=== PATIENT | male | born 1955 | race Caucasian/White ===

== ENCOUNTER 2018-12-03 08:17 | Day surgery (SDC) | payer BC ==
[~2018-12-03 08:17] MED LIST: Lactated Ringers 1,000 ML IV SCH; Lidocaine 1% 6 ML ONE; Lidocaine 1%/Sod Bicarbonate in NS 8.4% 1 ML Syringe IDERM PRN; Propofol 200 MG/20 ML SDV ONE; Sodium Chloride 0.9% 10 ML Syringe FLUSH PRN; fentaNYL 100 MCG/2 ML SDV ONE
[2018-12-03] MEDS ORDERED: Albuterol 0.083% 2.5 MG/3 ML Neb Soln NEB ONE (08:46)
--- NOTE | 2018-12-03 08:50 | PCM.PREANE ---
Preanesthetic Assessment - Procedure Proposed Procedure: colonoscopy - Anesthesia/Transfusion/Family Hx Anesthesia History: No Prior Anesthesia Family History of Anesthesia Reaction: No Transfusion History: No Prior Transfusion(s) - Review of Systems General: No Symptoms Pulmonary: Shortness of Breath (occasionally- feels more today- states needs to quit smoking) Cardiovascular: No Symptoms Gastrointestinal: No Symptoms Neurological: No Symptoms Other: Reports: Diabetes - Physical Assessment NPO Status Date: 12/03/18 NPO Status Time: 21:00 Vital Signs: 186/79 83 96% 17 97.9 Height: 6 ft 4 in Weight: 120.2 kg ASA Class: 2 Mental Status: Alert & Oriented x3 Airway Class: Mallampati = 2 Dentition: Reports: Normal Dentition Thyro-Mental Finger Breadths: 3 Mouth Opening Finger Breadths: 3 ROM/Head Extension: Full Lungs: Clear to Auscultation, Normal Respiratory Effort, Decreased Breath Sounds Cardiovascular: Regular Rate, Regular Rhythm - Allergies Allergies/Adverse Reactions: Allergies Allergy/AdvReac Type Severity Reaction Status Date / Time No Known Allergies Allergy Verified 12/22/13 13:38 - Blood Blood Available: No - Acknowledgements Anesthesia Type Planned: MAC Pt an Appropriate Candidate for the Planned Anesthesia: Yes Alternatives and Risks of Anesthesia Discussed w Pt/Guardian: Yes Pt/Guardian Understands and Agrees with Anesthesia Plan: Yes PreAnesthesia Questionnaire HEENT History: Reports: Allergic Rhinitis, Impaired Vision, Other (See Below) Other HEENT History: WEARS GLASSES Cardiovascular History: Reports: High Cholesterol, Hypertension, Other (See Below) Other Cardiovascular History: ABNORMAL HEART RATE Respiratory History: Reports: Other (See Below) Other Respiratory History: LOUD SNORING, 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 NO COMPLICATIONS/CONCERNS SINCE. 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 Musculoskeletal History: Reports: Other (See Below) Other Musculoskeletal History: Plantar fasciitis Neurological History: Reports: None Psychiatric History: Reports: None Endocrine/Metabolic History: Reports: Diabetes, Type II, Other (See Below) Other Endocrine/Metabolic History: overweight Hematologic History: Reports: None Immunologic History: Reports: None Oncologic (Cancer) History: Reports: None - Past Surgical History Head Surgeries/Procedures: Reports: None Respiratory Surgical History: Reports: None GI Surgical History: Reports: None Female Surgical History: Reports: None Male Surgical History: Reports: None Endocrine Surgical History: Reports: None Neurological Surgical History: Reports: None Musculoskeletal Surgical History: Reports: None Oncologic Surgical History: Reports: None Dermatological Surgical History: Reports: Other (See Below) - SUBSTANCE USE Smoking Status *Q: Current Every Day Smoker Tobacco Use Within Last Twelve Months: Cigarettes Second Hand Smoke Exposure: Yes Days Per Week of Alcohol Use: 7 Number of Drinks Per Day: 1 Total Drinks Per Week: 7 Recreational Drug Use History: No - HOME MEDS Home Medications: Home Meds Valsartan/Hydrochlorothiazide [Valsartan-Hctz 160-12.5 mg Tab] 1 tab PO DAILY [History] atorvaSTATin Calcium [Atorvastatin Calcium] 20 mg PO DAILY 12/02/18 [History] metFORMIN [Glucophage] 500 mg PO BID 12/02/18 [History] - CURRENT (IN HOUSE) MEDS Current Meds: Current Medications Lactated Ringer's (Ringers, Lactated) 1,000 mls @ 125 mls/hr IV ASDIRECTED RIVAS Stop: 12/03/18 23:00 Lidocaine/Sodium Bicarbonate (Buffered Lidocaine 1% In Ns 8.4%) 0.25 ml IDERM ONETIME PRN PRN Reason: Prior to IV Start Stop: 12/03/18 18:00 Sodium Chloride (Saline Flush) 10 ml FLUSH ASDIRECTED PRN PRN Reason: Keep Vein Open Stop: 12/03/18 18:00 Discontinued Medications Fentanyl (Sublimaze) Confirm Administered Dose 100 mcg .ROUTE .STK-MED ONE Stop: 12/03/18 07:23 Lidocaine HCl (Xylocaine-Mpf 1%) Confirm Administered Dose 6 mls @ as directed .ROUTE .STK-MED ONE Stop: 12/03/18 07:22 Propofol (Diprivan 20 Ml) Confirm Administered Dose 200 mg .ROUTE .STK-MED ONE Stop: 12/03/18 07:22
[2018-12-03] MEDS ORDERED: Lactated Ringers 1,000 ML ONE (10:20)
[2018-12-03] MEDS ORDERED: Propofol 200 MG/20 ML SDV ONE (10:24)
--- NOTE | 2018-12-03 10:54 | PCM48HPAN ---
Post Anesthesia Note - EVALUATION WITHIN 48HRS OF ANESTHETIC Vital Signs in Normal Range: Yes Patient Participated in Evaluation: Yes Respiratory Function Stable: Yes Airway Patent: Yes Cardiovascular Function Stable: Yes Hydration Status Stable: Yes Pain Control Satisfactory: Yes Nausea and Vomiting Control Satisfactory: Yes Mental Status Recovered: Yes Vital Signs: Last Vital Signs Temp 97.9 12/03/18 10:50 Pulse 68 12/03/18 10:50 Resp 12 12/03/18 10:50 BP 140/85 12/03/18 10:50 Pulse Ox 94 12/03/18 10:50
--- NOTE | 2018-12-03 13:40 | OR ---
DATE OF OPERATION: 12/03/2018 SURGEON: Agustin Egan MD PREOPERATIVE DIAGNOSIS: Colorectal cancer screening. POSTOPERATIVE DIAGNOSIS: 1. Colorectal cancer screening. 2. Diverticulosis. 3. Colon polyps. OPERATION PERFORMED: Screening colonoscopy and polypectomy x2. ANESTHESIA: MAC. FINDINGS: He had nathan-diverticulosis. I also noted 2 polyps, 1 in the rectum and 1 in the transverse colon. Both of these were removed in their entirety with a biopsy forceps, both subcentimeter, and they appeared to be hyperplastic in nature. The bowel prep was adequate. DISPOSITION: Stable at the end of the procedure. ESTIMATED BLOOD LOSS: Minimal. PATHOLOGY: 1. Rectal polyp. 2. Transverse colon polyp. INDICATION: The patient is a 63-year-old male who has never had a colonoscopy. He was referred for colorectal cancer screening. He was fully informed of the major risks, benefits, and alternatives. The risks include, but are not limited to perforation of the colon, bleeding, the risks of anesthesia, the possibility of further surgery, and many others. He gave informed consent of what was done. DESCRIPTION OF PROCEDURE: The patient was brought to the gastro suite and placed in the left lateral decubitus position. He was given monitored anesthesia. A digital rectal exam was performed. This was unremarkable. I introduced the colonoscope in the rectum with copious lubrication. I advanced the scope with gentle forward pressure keeping the lumen in view at all times. I reached the cecum and documented the cecum photographically for the chart. I slowly investigated the mucosa of the colon from the cecum back to the anus in an exam lasting 15 minutes. A thorough careful examination demonstrated nathan-diverticulosis. Two polyps as noted previously. The polyps were removed with several bites of the biopsy forceps in their entirety. As I slowly investigated the mucosa, I evacuated the air from the colon. At the end of the procedure, the scope was withdrawn. He had no complications and tolerated the procedure well. PLAN: He will need another colonoscopy in 5 years based on my findings today. However, if his pathology returns hyperplastic, 10-year followup will be adequate. MMODAL /[id number]
--- NOTE | 2018-12-06 10:05 | HP ---
DATE OF ADMISSION: 12/03/2018 ADMITTING DIAGNOSIS: Colorectal cancer screening. HISTORY OF PRESENT ILLNESS: The patient is a 63-year-old male who presents for colorectal cancer screening. He has never had a colonoscopy. He is asymptomatic. He denies bloody bowel movements, changes in his bowel movements, straining on the toilet, tenesmus, change in the size of his stool, abdominal pain, or abdominal bloating. He has no family history. PAST MEDICAL HISTORY: Hypertension, type 2 diabetes, hypercholesterolemia, and gastroesophageal reflux disease. PAST SURGICAL HISTORY: He has had a thoracostomy tube for a left pneumothorax at the age of 20. No other surgeries. CURRENT MEDICATIONS: 1. Atorvastatin 20 mg p.o. daily. 2. Metformin 500 mg twice daily. 3. Valsartan/hydrochlorothiazide 160/25, 1 tab daily. FAMILY HISTORY: Significant for asthma in his mother and type 2 diabetes. His father had type 2 diabetes as well. SOCIAL HISTORY: He drinks 8 to 14 drinks per week. He denies illicit drugs. He is a 1-pack-per- day smoker for 10 years and quit just a month ago. He still smokes cigars, 4 to 5 cigars per day. REVIEW OF SYSTEMS: He has an excellent exercise tolerance. He has no chest pain or shortness of breath. He can ambulate as long as he would like without stopping to catch his breath. He can climb 2 flights of stairs without stopping to catch his breath. A 10-system review is, otherwise, negative. PHYSICAL EXAMINATION: GENERAL: He is alert. He is in no obvious distress. He looks quite comfortable. VITAL SIGNS: Vitals are within normal limits. HEAD AND NECK: Normocephalic and atraumatic. His neck is supple with full range of motion. No carotid bruits. HEART: He has a regular rate and rhythm. No clicks, murmurs, or rubs. LUNGS: He has some bilateral wheeze. No crackles. No rhonchi. ABDOMEN: Soft, nontender, and nondistended. No palpable hernias. No palpable masses. NEUROLOGIC: His cranial nerves are grossly intact and nonfocal. Strength, sensation, and movement are preserved in all 4 extremities. PSYCHIATRIC: He has appropriate affect and demeanor. INTEGUMENT: No rashes. No lesions. No petechiae. No jaundice. ASSESSMENT: Colorectal cancer screening. PLAN: I have recommended today a screening colonoscopy per the standard of care. He was fully informed of the major risks, benefits, and alternatives of the procedure. These risks include, but are not limited to perforation of the colon, bleeding, the risks of anesthesia, the possibility of further surgery, and many others. He gave informed consent. KAYLIN /[id number]
== END 2018-12-03 11:14 | disposition home or self-care (01) ==
LOC: JD.SDS 08:17
PROVIDERS: ATTEND Surgery
DX: Z12.11 Encounter for screening for malignant neoplasm of colon (principal); D12.3 Benign neoplasm of transverse colon; K63.5 Polyp of colon; K57.30 Diverticulosis of large intestine without perforation or abscess without bleeding; E11.9 Type 2 diabetes mellitus without complications; I10 Essential (primary) hypertension; K21.9 Gastro-esophageal reflux disease without esophagitis; F17.210 Nicotine dependence, cigarettes, uncomplicated; E66.9 Obesity, unspecified; Z68.33 Body mass index [BMI] 33.0-33.9, adult; Z79.899 Other long term (current) drug therapy; Z79.84 Long term (current) use of oral hypoglycemic drugs
CPT/HCPCS: 45380; 82962; 94640; J2001; J2704; J3010; J7120; 00812

== ENCOUNTER 2020-08-03 08:18 | Day surgery (SDC) | payer BC ==
[~2020-08-03 08:18] MED LIST changes: -Lidocaine 1% 6 ML ONE; -Propofol 200 MG/20 ML SDV ONE; -fentaNYL 100 MCG/2 ML SDV ONE
[2020-08-03] MEDS ORDERED: Lidocaine 1% 4 ML ONE (08:40)
[2020-08-03] MEDS ORDERED: Propofol 200 MG/20 ML SDV ONE (08:41)
--- NOTE | 2020-08-03 09:10 | PCM.PREANE ---
Preanesthetic Assessment - Procedure Proposed Procedure: Diagnostic EGD - Anesthesia/Transfusion/Family Hx Anesthesia History: Prior Anesthesia Without Reaction Family History of Anesthesia Reaction: No Transfusion History: No Prior Transfusion(s) Intubation History: Unknown - Review of Systems General: No Symptoms Pulmonary: No Symptoms (Smoker: less than 1/2ppd for 10 years./ETOH: 2 beers/day) Cardiovascular: No Symptoms (HTN), Palpitations Gastrointestinal: No Symptoms (epigastric pain/GERD) Neurological: No Symptoms (VERTIGO) Other: Reports: Diabetes (gastroparesis/DM 152 @ 0840), Sinus Problem (Allergic rhinitis) - Physical Assessment NPO Status Date: 08/02/20 NPO Status Time: 22:00 Vital Signs: HR: 79 B/P: 154/74 Resp: 16 Sat: 98% Temp: 97.2 Height: 1.93 m Weight: 117 kg ASA Class: 3 Mental Status: Alert & Oriented x3 Airway Class: Mallampati = 2 Dentition: Reports: Normal Dentition, Caries Thyro-Mental Finger Breadths: 3 Mouth Opening Finger Breadths: 3 ROM/Head Extension: Full Lungs: Clear to Auscultation, Normal Respiratory Effort Cardiovascular: Regular Rate, Regular Rhythm, No Murmurs - Lab Values: All labs reviewed and noted and within acceptable ranges to proceed with scheduled procedure. - Imaging/EKG Impressions: EKG: SR rate=86, probable left atrial abnormality consider anteroseptal infarct. Echocardiogram: 04/2020: EF= 60-65%, mild concentric left ventricular hypertrophy Cardiolyte stress test: negative - Allergies Allergies/Adverse Reactions: Allergies Allergy/AdvReac Type Severity Reaction Status Date / Time No Known Allergies Allergy Verified 08/02/20 13:31 - Anesthesia Plan Pre-Op Medication Ordered: None - Acknowledgements Anesthesia Type Planned: MAC Pt an Appropriate Candidate for the Planned Anesthesia: Yes Alternatives and Risks of Anesthesia Discussed w Pt/Guardian: Yes Pt/Guardian Understands and Agrees with Anesthesia Plan: Yes PreAnesthesia Questionnaire HEENT History: Reports: Allergic Rhinitis, Impaired Vision, Other (See Below) Other HEENT History: WEARS GLASSES Cardiovascular History: Reports: High Cholesterol, Hypertension, Other (See Below) Other Cardiovascular History: abnormal heart rate, palpitations Respiratory History: Reports: Other (See Below) Other Respiratory History: LOUD SNORING, 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 NO COMPLICATIONS/CONCERNS SINCE. 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 Musculoskeletal History: Reports: Osteoarthritis, Other (See Below) Other Musculoskeletal History: Plantar fasciitis Neurological History: Reports: None Psychiatric History: Reports: None Endocrine/Metabolic History: Reports: Diabetes, Type II, Other (See Below) Other Endocrine/Metabolic History: overweight Hematologic History: Reports: None Immunologic History: Reports: None Oncologic (Cancer) History: Reports: None Dermatologic History: Reports: None - Infectious Disease History Infectious Disease History: Reports: None - Past Surgical History Head Surgeries/Procedures: Reports: None Cardiovascular Surgical History: Reports: None Respiratory Surgical History: Reports: None GI Surgical History: Reports: None Female Surgical History: Reports: None Male Surgical History: Reports: None Endocrine Surgical History: Reports: None Neurological Surgical History: Reports: None Musculoskeletal Surgical History: Reports: None Oncologic Surgical History: Reports: None Dermatological Surgical History: Reports: Other (See Below) - SUBSTANCE USE Tobacco Use Status *Q: Current Every Day Tobacco User Days Per Week of Alcohol Use: 7 Number of Drinks Per Day: 2 Total Drinks Per Week: 14 Recreational Drug Use History: No - HOME MEDS Home Medications: Home Meds Aspirin 81 mg PO DAILY 08/02/20 [History] Magnesium Oxide [Magnesium] 400 mg PO BID 08/02/20 [History] Pantoprazole Sodium [Protonix] 40 mg PO DAILY 08/02/20 [History] SitaGLIPtin [Januvia] 100 mg PO DAILY 08/02/20 [History] Valsartan/Hydrochlorothiazide [Valsartan-Hctz 320-25 mg Tab] 1 tab PO DAILY 08/02/20 [History] Vitamin E 400 unit PO DAILY 08/02/20 [History] amLODIPine [Norvasc] 5 mg PO DAILY 08/02/20 [History] atorvaSTATin [Lipitor] 40 mg PO BEDTIME 08/02/20 [History] metFORMIN HCl [Metformin HCl] 1,000 mg PO BID 08/02/20 [History] tadalafiL [Tadalafil] 20 mg PO ASDIRECTED PRN 08/02/20 [History] - CURRENT (IN HOUSE) MEDS Current Meds: Current Medications Lactated Ringer's (Ringers, Lactated) 1,000 mls @ 125 mls/hr IV ASDIRECTED RIVAS Stop: 08/03/20 23:00 Lidocaine/Sodium Bicarbonate (Lidocaine 1%/Sod Bicarbonate In Ns 8.4% 1 Ml Syringe) 0.25 ml IDERM ONETIME PRN PRN Reason: Prior to IV Start Stop: 08/03/20 18:00 Sodium Chloride (Sodium Chloride 0.9% 10 Ml Syringe) 10 ml FLUSH ASDIRECTED PRN PRN Reason: Keep Vein Open Stop: 08/03/20 18:00 Discontinued Medications Lidocaine HCl (Xylocaine-Mpf 1%) Confirm Administered Dose 4 mls @ as directed .ROUTE .STK-MED ONE Stop: 08/03/20 08:41 Propofol (Propofol 200 Mg/20 Ml Sdv) Confirm Administered Dose 200 mg .ROUTE .STK-MED ONE Stop: 08/03/20 08:42
--- NOTE | 2020-08-03 09:15 | PCM.PREANE ---
Preanesthetic Assessment - Procedure Proposed Procedure: Diagnostic EGD - Anesthesia/Transfusion/Family Hx Anesthesia History: Prior Anesthesia Without Reaction Family History of Anesthesia Reaction: No Transfusion History: No Prior Transfusion(s) Intubation History: Unknown - Physical Assessment NPO Status Date: 08/02/20 NPO Status Time: 22:00 - Allergies Allergies/Adverse Reactions: Allergies Allergy/AdvReac Type Severity Reaction Status Date / Time No Known Allergies Allergy Verified 08/02/20 13:31 PreAnesthesia Questionnaire HEENT History: Reports: Allergic Rhinitis, Impaired Vision, Other (See Below) Other HEENT History: WEARS GLASSES Cardiovascular History: Reports: High Cholesterol, Hypertension, Other (See Below) Other Cardiovascular History: abnormal heart rate, palpitations Respiratory History: Reports: Other (See Below) Other Respiratory History: LOUD SNORING, 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 NO COMPLICATIONS/CONCERNS SINCE. 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 Musculoskeletal History: Reports: Osteoarthritis, Other (See Below) Other Musculoskeletal History: Plantar fasciitis Neurological History: Reports: None Psychiatric History: Reports: None Endocrine/Metabolic History: Reports: Diabetes, Type II, Other (See Below) Other Endocrine/Metabolic History: overweight Hematologic History: Reports: None Immunologic History: Reports: None Oncologic (Cancer) History: Reports: None Dermatologic History: Reports: None - Infectious Disease History Infectious Disease History: Reports: None - Past Surgical History Head Surgeries/Procedures: Reports: None Cardiovascular Surgical History: Reports: None Respiratory Surgical History: Reports: None GI Surgical History: Reports: None Female Surgical History: Reports: None Male Surgical History: Reports: None Endocrine Surgical History: Reports: None Neurological Surgical History: Reports: None Musculoskeletal Surgical History: Reports: None Oncologic Surgical History: Reports: None Dermatological Surgical History: Reports: Other (See Below) - SUBSTANCE USE Tobacco Use Status *Q: Current Every Day Tobacco User Days Per Week of Alcohol Use: 7 Number of Drinks Per Day: 2 Total Drinks Per Week: 14 Recreational Drug Use History: No - HOME MEDS Home Medications: Home Meds Aspirin 81 mg PO DAILY 08/02/20 [History] Magnesium Oxide [Magnesium] 400 mg PO BID 08/02/20 [History] Pantoprazole Sodium [Protonix] 40 mg PO DAILY 08/02/20 [History] SitaGLIPtin [Januvia] 100 mg PO DAILY 08/02/20 [History] Valsartan/Hydrochlorothiazide [Valsartan-Hctz 320-25 mg Tab] 1 tab PO DAILY 08/02/20 [History] Vitamin E 400 unit PO DAILY 08/02/20 [History] amLODIPine [Norvasc] 5 mg PO DAILY 08/02/20 [History] atorvaSTATin [Lipitor] 40 mg PO BEDTIME 08/02/20 [History] metFORMIN HCl [Metformin HCl] 1,000 mg PO BID 08/02/20 [History] tadalafiL [Tadalafil] 20 mg PO ASDIRECTED PRN 08/02/20 [History] - CURRENT (IN HOUSE) MEDS Current Meds: Current Medications Lactated Ringer's (Ringers, Lactated) 1,000 mls @ 125 mls/hr IV ASDIRECTED RIVAS Stop: 08/03/20 23:00 Lidocaine/Sodium Bicarbonate (Lidocaine 1%/Sod Bicarbonate In Ns 8.4% 1 Ml Syringe) 0.25 ml IDERM ONETIME PRN PRN Reason: Prior to IV Start Stop: 08/03/20 18:00 Sodium Chloride (Sodium Chloride 0.9% 10 Ml Syringe) 10 ml FLUSH ASDIRECTED PRN PRN Reason: Keep Vein Open Stop: 08/03/20 18:00 Discontinued Medications Lidocaine HCl (Xylocaine-Mpf 1%) Confirm Administered Dose 4 mls @ as directed .ROUTE .STK-MED ONE Stop: 08/03/20 08:41 Propofol (Propofol 200 Mg/20 Ml Sdv) Confirm Administered Dose 200 mg .ROUTE .S TK-MED ONE Stop: 08/03/20 08:42
[2020-08-03] MEDS ORDERED: fentaNYL 100 MCG/2 ML SDV ONE (10:03)
--- NOTE | 2020-08-03 10:34 | PCM.PRNOTE ---
- Free Text/Narrative Note: Date: 08/03/2020 Procedure: diagnostic esophagogastroduodenoscopy Indication: epigastric discomfort with unremarkable workup to date Endoscopist: Conor Chaudhary MD Findings: no abnormal findings. Detailed Report: The patient was taken to the endoscopy suite and placed in left lateral decubitus position. Time out was performed and monitored anesthesia care was initiated. A bite block was placed. The endoscope was inserted into the mouth and advanced to the distal duodenum with ease. Duodenal mucosa appeared normal. A sample of mucosa was biopsied with cold forceps. The scope was withdrawn into the stomach. Gastric mucosa appeared grossly normal and no hiatal hernia was seen. Biopsies were taken from the antrum and body with cold forceps. The scope was withdrawn into the distal esophagus. The Z line appeared normal. A biopsy was taken of distal esophageal mucosa. The entire esophagus appeared normal. Air was suctioned from the stomach prior to withdrawal of the scope. The patient tolerated the procedure well.
--- NOTE | 2020-08-03 10:56 | PCM48HPAN ---
Post Anesthesia Note - EVALUATION WITHIN 48HRS OF ANESTHETIC Vital Signs in Normal Range: Yes Patient Participated in Evaluation: Yes Respiratory Function Stable: Yes Airway Patent: Yes Cardiovascular Function Stable: Yes Hydration Status Stable: Yes Pain Control Satisfactory: Yes Nausea and Vomiting Control Satisfactory: Yes Mental Status Recovered: Yes Vital Signs: Last Vital Signs Temp 97.2 F 08/03/20 08:25 Pulse 79 08/03/20 08:25 Resp 16 08/03/20 08:25 BP 151/74 H 08/03/20 08:25 Pulse Ox 98 08/03/20 08:25 1033 124/68 97% 64 16 97.1
== END 2020-08-03 11:00 | disposition home or self-care (01) ==
LOC: JD.SDS 08:18
PROVIDERS: ATTEND Surgery
DX: K31.89 Other diseases of stomach and duodenum (principal); E11.43 Type 2 diabetes mellitus with diabetic autonomic (poly)neuropathy; K31.84 Gastroparesis; F17.210 Nicotine dependence, cigarettes, uncomplicated; E78.5 Hyperlipidemia, unspecified; I10 Essential (primary) hypertension; E66.3 Overweight; K21.9 Gastro-esophageal reflux disease without esophagitis; E78.00 Pure hypercholesterolemia, unspecified; Z79.899 Other long term (current) drug therapy; Z79.82 Long term (current) use of aspirin; Z79.84 Long term (current) use of oral hypoglycemic drugs; Z68.32 Body mass index [BMI] 32.0-32.9, adult
CPT/HCPCS: 43239; 82947; J2704; J3010; J7120; 00731

== ENCOUNTER 2021-09-17 09:48 | Emergency (ER) | payer BC ==
[2021-09-17] MEDS ORDERED: Sodium Chloride 0.9% 10 ML Syringe FLUSH PRN (14:10)
[2021-09-17] MEDS ORDERED: Orphenadrine 100 MG Tab.ER PO ONE (14:12)
[2021-09-17] MEDS ORDERED: HYDROmorphone 0.5 MG/0.5 ML Syringe IVPUSH ONE (14:12)
== END 2021-09-17 17:20 | disposition home or self-care (01) ==
LOC: JD.ED 09:48
DX: M54.50 Low back pain, unspecified (principal); I10 Essential (primary) hypertension; E78.00 Pure hypercholesterolemia, unspecified; E11.9 Type 2 diabetes mellitus without complications; Z79.82 Long term (current) use of aspirin; Z79.899 Other long term (current) drug therapy; Z88.8 Allergy status to other drugs, medicaments and biological substances
CPT/HCPCS: 36415; 70450; 72131; 80053; 85025; 96374; 99284; A9270; J1170; J3490